=== PATIENT | male | born 2000 | race Two or more races ===

== ENCOUNTER 2019-02-11 21:30 | Emergency (ER) | payer OTHER ==
[~2019-02-11] VITALS: Ht 170.2 cm; Wt 106.6 kg
[2019-02-11] MEDS ORDERED: IV NORMAL SALINE 1000ML BAG 1,000 ML IV ONE (22:30)
[2019-02-11 22:40] LABS: BASO # 0.1 x10^3/uL (0.0-0.2); BASO % 1 % (0-3); EOS # 0.2 x10^3/uL (0.0-0.7); EOS % 3 % (0-3); HEMATOCRIT 44.4 % (39.0-53.0); HEMOGLOBIN 15.1 g/dL (13.0-17.5); LYMPH # 2.4 x10^3/uL (1.0-4.8); LYMPH % 29 % (24-48); MEAN CORPUSCULAR HEMOGLOBIN 30 pg (25-35); MEAN CORPUSCULAR HGB CONC 34 g/dL (31-37); MEAN CORPUSCULAR VOLUME 87 fL (79-100); MONO # 0.5 x10^3/uL (0.0-1.1); MONO % 6 % (0-9); NEUT % 62 % (31-73); PLATELET COUNT 402 x10^3/uL (140-400); RED CELL DISTRIBUTION WIDTH 13.1 % (11.5-14.5); WHITE BLOOD COUNT 8.2 x10^3/uL (4.0-11.0)
[2019-02-11] MEDS ORDERED: LIDO:MAALOX 1:1 20 ML SINGLE DOSE. SWSW ONE (22:45)
[2019-02-11 22:47] LABS: CALCIUM 9.2 mg/dL (8.5-10.1); GFR 95.3; POTASSIUM 3.9 mmol/L (3.5-5.1)
[2019-02-11 22:48] VITALS: BP 119/72
[2019-02-11 22:55] LABS: ALBUMIN 3.8 g/dL (3.4-5.0); ALBUMIN/GLOBULIN RATIO 0.8 (1.0-1.7); TOTAL BILIRUBIN 0.3 mg/dL (0.2-1.0); TOTAL PROTEIN 8.4 g/dL (6.4-8.2)
[2019-02-11 23:45] LABS: BILIRUBIN,URINE NEGATIVE (NEG); CLARITY,URINE CLOUDY; COLOR,URINE YELLOW; NITRITE,URINE NEGATIVE (NEG); PH,URINE 5.5; PROTEIN,URINE NEGATIVE (NEG-TRACE); UROBILINOGEN,URINE 0.2 mg/dL (0.2 mg/dL)
[2019-02-11 23:53] LABS: SQUAMOUS EPITHELIAL CELL,UR OCC /LPF
[2019-02-11 23:55] LABS: AMORPHOUS SEDIMENT,UR PRESENT /HPF; BACTERIA,URINE 0 /HPF (0-FEW); RBC,URINE 0 /HPF (0-2); WBC,URINE OCC /HPF (0-4)
[2019-02-12] MEDS ORDERED: FAMO20TA5 PO (00:01)
--- NOTE | 2019-02-12 00:01 | PHYS DOC ---
Past Medical History Past Medical History: Asthma Past Surgical History: No Surgical History Alcohol Use: None Drug Use: None Adult General Chief Complaint Chief Complaint: GI PROBLEM [facility] Patient is a 18 year old male who presents to the emergency department with complaints of epigastric pain and burning in his chest that worsened after eating today. Patient states he had to miss work because the pain became too severe. He denies any nausea, vomiting, diarrhea, abdominal pain, fever, cough, shortness of breath, wheezing, or palpitations. He states he has had some pain in his left low back today, denies any dysuria, hematuria, or increased urinary frequency. He currently rates his pain a 9 out of 10 on pain scale and describes the discomfort as burning. Patient denies any alleviating factors, the pain is worsened with eating. All other ROS is neg unless otherwise noted in HPI. Review of Systems Review of Systems See Above Current Medications Current Medications Current Medications Medications (Trade) Dose Ordered Sig/Anel Start Time Stop Time Status Last Admin Dose Admin Multi-Ingredient Mouthwash/Gargle (Gi Cocktail) 20 ml 1X ONCE 02/11/19 22:45 02/11/19 22:46 DC 02/11/19 22:40 20 ML Sodium Chloride 1,000 ml @ 1,000 mls/hr 1X ONCE 02/11/19 22:30 02/11/19 23:29 DC 02/11/19 22:42 1,000 MLS/HR Allergies Allergies Allergies Coded Allergies Type Severity Reaction Last Updated Verified No Known Drug Allergies 02/11/19 No Physical Exam Physical Exam See Above Constitutional: Well developed, well nourished, no acute distress, non-toxic appearance, obese. [] HENT: Normocephalic, atraumatic, bilateral external ears normal, nose normal. [] Eyes: PERRLA, EOMI, conjunctiva normal, no discharge. [] Neck: Normal range of motion, no stridor. [] Cardiovascular:Heart rate regular rhythm, no murmur [] Lungs & Thorax: Bilateral breath sounds clear to auscultation, respirations regular, no retractions [] Abdomen: Bowel sounds normal, soft, epigastric TTP, no guarding, no rebound tenderness, no masses, no pulsatile masses. [] Skin: Warm, dry, no erythema, no rash. [] Back: No tenderness, no CVA tenderness. [] Extremities: No cyanosis, ROM intact, no edema. [] Neurologic: Alert and oriented X 3, no focal deficits noted. [] Psychologic: Affect normal, judgement normal, mood normal. [] Current Patient Data Vital Signs Vital Signs Date Time Temp Pulse Resp B/P (MAP) Pulse Ox O2 Delivery O2 Flow Rate FiO2 02/11/19 22:48 90 119/72 (88) 98 Room Air 02/11/19 21:55 97.9 17 97.9 Lab Values Laboratory Tests Test 02/11/19 22:30 02/11/19 23:35 White Blood Count 8.2 x10^3/uL (4.0-11.0) Red Blood Count 5.10 x10^6/uL (4.30-5.70) Hemoglobin 15.1 g/dL (13.0-17.5) Hematocrit 44.4 % (39.0-53.0) Mean Corpuscular Volume 87 fL (79-100) Mean Corpuscular Hemoglobin 30 pg (25-35) Mean Corpuscular Hemoglobin Concent 34 g/dL (31-37) Red Cell Distribution Width 13.1 % (11.5-14.5) Platelet Count 402 x10^3/uL (140-400) H Neutrophils (%) (Auto) 62 % (31-73) Lymphocytes (%) (Auto) 29 % (24-48) Monocytes (%) (Auto) 6 % (0-9) Eosinophils (%) (Auto) 3 % (0-3) Basophils (%) (Auto) 1 % (0-3) Neutrophils # (Auto) 5.0 x10^3/uL (1.8-7.7) Lymphocytes # (Auto) 2.4 x10^3/uL (1.0-4.8) Monocytes # (Auto) 0.5 x10^3/uL (0.0-1.1) Eosinophils # (Auto) 0.2 x10^3/uL (0.0-0.7) Basophils # (Auto) 0.1 x10^3/uL (0.0-0.2) Sodium Level 141 mmol/L (136-145) Potassium Level 3.9 mmol/L (3.5-5.1) Chloride Level 104 mmol/L (98-107) Carbon Dioxide Level 29 mmol/L (21-32) Anion Gap 8 (6-14) Blood Urea Nitrogen 11 mg/dL (8-26) Creatinine 1.0 mg/dL (0.7-1.3) Estimated GFR (Cockcroft-Gault) 95.3 BUN/Creatinine Ratio 11 (6-20) Glucose Level 103 mg/dL (70-99) H Calcium Level 9.2 mg/dL (8.5-10.1) Total Bilirubin 0.3 mg/dL (0.2-1.0) Aspartate Amino Transferase (AST) 24 U/L (15-37) Alanine Aminotransferase (ALT) 32 U/L (16-63) Alkaline Phosphatase 103 U/L (46-116) Total Protein 8.4 g/dL (6.4-8.2) H Albumin 3.8 g/dL (3.4-5.0) Albumin/Globulin Ratio 0.8 (1.0-1.7) L Lipase 126 U/L (73-393) Urine Collection Type Unknown Urine Color Yellow Urine Clarity Cloudy Urine pH 5.5 Urine Specific [place] 1.020 Urine Protein Negative mg/dL (NEG-TRACE) Urine Glucose (UA) Negative mg/dL (NEG) Urine Ketones (Stick) Negative mg/dL (NEG) Urine Blood Negative (NEG) Urine Nitrite Negative (NEG) Urine Bilirubin Negative (NEG) Urine Urobilinogen Dipstick 0.2 mg/dL (0.2 mg/dL) Urine Leukocyte Esterase Negative (NEG) Urine RBC 0 /HPF (0-2) Urine WBC Occ /HPF (0-4) Urine Squamous Epithelial Cells Occ /LPF Urine Amorphous Sediment Present /HPF Urine Bacteria 0 /HPF (0-FEW) Urine Mucus Mod /LPF Laboratory Tests 02/11/19 22:30 Laboratory Tests 02/11/19 22:30 EKG EKG 2158- SR, rate 79, no STEMI read by Dr. Gómez [] Radiology/Procedures Radiology/Procedures [] Course & Med Decision Making Course & Med Decision Making Pertinent Labs and Imaging studies reviewed. (See chart for details) Patient is a 18-year-old male who presents to emergency room with complaints of epigastric pain and burning in his chest began today. His CBC was unremarkable, CMP revealed a glucose of 103, total protein of 8.4 was otherwise unremarkable, UA was also unremarkable. EKG was sinus rhythm with a rate of 75, no STEMI as read by Dr. Gómez His vital signs were stable throughout the duration of the stay. Patient was given a GI cocktail and 1 L of normal saline. He reported relief of his pain after these medications. A prescription was written for famotidine 20 mg by mouth at at bedtime. Patient was instructed to follow the diet instructions for GERD that were provided to him and he was instructed to follow-up with his primary care doctor this week. Patient verbalized an understanding of home care, medications, follow-up, and return to ED instructions and was in agreement with the plan of care. [] Dragon Disclaimer Dragon Disclaimer This electronic medical record was generated, in whole or in part, using a voice recognition dictation system. Departure Departure Impression: Primary Impression: GERD (gastroesophageal reflux disease) Disposition: HOME, SELF-CARE Condition: STABLE Referrals: NO PCP (PCP) Patient Instructions: Diet for Gastroesophageal Reflux Disease, Adult, Gastroesophageal Reflux Disease, Adult, [id number] Additional Instructions: Fill the prescription and use as directed. Follow the diet instructions p rovided. Follow up with your primary care doctor this week. Return to the ER if your symptoms worsen. Scripts Famotidine (FAMOTIDINE) 20 Mg Tablet 20 MG PO HS for 30 Days, #30 TAB 0 Refills Prov: BRET PAYTON APRN 02/12/19 Problem Qualifiers Primary Impression: GERD (gastroesophageal reflux disease) Esophagitis presence: esophagitis presence not specified Qualified Codes: K21.9 - Gastro-esophageal reflux disease without esophagitis BRET PAYTON APRN Feb 12, 2019 00:01
--- NOTE | 2019-02-12 03:14 | EKG ---
[facility] [address] [place] [address] Test Date: 2019-02-11 Test Time: 21:58:17 Pat Name: JOSEFINA ZHENG Department: Room: Gender: M [employer] Job Titles: : 2000 Requested By: SENAIT CONTI Order Number: [id number] Reading MD: Measurements Intervals Raymond Rate: 79 P: 33 NE: 144 QRS: 34 QRSD: 80 T: 15 QT: 348 QTc: 400 Interpretive Statements SINUS RHYTHM QRS(T) CONTOUR ABNORMALITY CONSIDER ANTEROSEPTAL MYOCARDIAL DAMAGE POSSIBLY ABNORMAL ECG RI6.01 No previous ECG available for comparison
== END 2019-02-12 00:15 | disposition home or self-care (01) ==
LOC: ER 21:30
DX: K21.9 Gastro-esophageal reflux disease without esophagitis (principal); J45.909 Unspecified asthma, uncomplicated
CPT/HCPCS: 36415; 80053; 81001; 83690; 85025; 93005; 99285; J7030

== ENCOUNTER 2019-03-12 20:34 | Emergency (ER) | payer OTHER ==
[~2019-03-12] VITALS: Ht 167.6 cm; Wt 106.6 kg
[~2019-03-12 20:34] MED LIST: FAMO20TA5 PO
[2019-03-12] MEDS ORDERED: IBUPROFEN 200 MG TABLET. PO ONE (20:45)
[2019-03-12 21:10] LABS: INFLUENZA A PATIENT NEGATIVE (NEGATIVE)
[2019-03-12 21:12] LABS: INFLUENZA B PATIENT POSITIVE (NEGATIVE)
[2019-03-12 21:16] VITALS: BP 127/62
[2019-03-12] MEDS ORDERED: AMOX875T PO (22:13)
[2019-03-12] MEDS ORDERED: PRED50TA PO (22:13)
[2019-03-12] MEDS ORDERED: OSEL75CA PO (22:13)
--- NOTE | 2019-03-12 22:13 | PHYS DOC ---
Past Medical History Past Medical History: Asthma (MILLY MORRIS APRN) Past Surgical History: No Surgical History (MILLY MORRIS APRN) Alcohol Use: None Drug Use: None (MILLY MORRIS APRN) Attending Signature I have participated in the care of this patient and I have reviewed and agree with all pertinent clinical information above including history, exam, and recommendations. (JEROD AN MD) Adult General Chief Complaint Chief Complaint: COUGH HPI HPI Patient is a 18 year old female who presents with cough, sore throat, and fever for two days. Reports bloody sputum on coughing today. (MILLY MORRIS APRN) Review of Systems Review of Systems Constitutional: Reports fever Eyes: Denies change in visual acuity, redness, or eye pain [] HENT: Reports sore throat. Denies nasal congestion Respiratory: Reports cough denies shortness of breath [] Cardiovascular: No additional information not addressed in HPI [] GI: Denies abdominal pain, nausea, vomiting, bloody stools or diarrhea [] : Denies dysuria or hematuria [] Musculoskeletal: Denies back pain or joint pain [] Integument: Denies rash or skin lesions [] Neurologic: Denies headache, focal weakness or sensory changes [] All other systems were reviewed and found to be within normal limits, except as documented in this note. (MILLY MORRIS APRN) Current Medications Current Medications Current Medications Medications (Trade) Dose Ordered Sig/Anel Start Time Stop Time Status Last Admin Dose Admin Ibuprofen (Motrin) 600 mg 1X ONCE 03/12/19 20:45 03/12/19 20:48 DC 03/12/19 20:45 600 MG (JEROD AN MD) Allergies Allergies Allergies Coded Allergies Type Severity Reaction Last Updated Verified No Known Drug Allergies 02/11/19 No (JEROD AN MD) Physical Exam Physical Exam Constitutional: Well developed, well nourished, no acute distress, non-toxic appearance. [] HENT: Normocephalic, atraumatic, bilateral external ears normal, oropharynx moist, no oral exudates, nose normal. [] +2 tonsils with mild erythema and exudate +2 anterior cervical adenopathy Midline uvula Eyes: PERRLA, EOMI, conjunctiva normal, no discharge. [] Neck: Normal range of motion, no tenderness, supple, no stridor. [] Cardiovascular:Heart rate regular rhythm, no murmur [] Lungs & Thorax: Bilateral breath sounds clear to auscultation [] Abdomen: Bowel sounds normal, soft, no tenderness, no masses, no pulsatile masses. [] Skin: Warm, dry, no erythema, no rash. [] Back: No tenderness, no CVA tenderness. [] Extremities: No tenderness, no cyanosis, no clubbing, ROM intact, no edema. [] Neurologic: Alert and oriented X 3, normal motor function, normal sensory function, no focal deficits noted. [] Psychologic: Affect normal, judgement normal, mood normal. [] (MILLY MORRIS APRN) Current Patient Data Vital Signs Vital Signs Date Time Temp Pulse Resp B/P (MAP) Pulse Ox O2 Delivery O2 Flow Rate FiO2 03/12/19 21:16 109 17 127/62 (83) 95 Room Air 03/12/19 20:34 99.6 99.6 (JEROD AN MD) Lab Values Laboratory Tests Test 03/12/19 20:43 03/12/19 20:51 Influenza Type A Antigen Negative (NEGATIVE) Influenza Type B Antigen Positive (NEGATIVE) Group A Streptococcus Rapid Positive (NEGATIVE) (JEROD AN MD) EKG EKG [] (MILLY MORRIS APRN) Radiology/Procedures Radiology/Procedures [] (MILLY MORRIS APRN) Course & Med Decision Making Course & Med Decision Making Pertinent Labs and Imaging studies reviewed. (See chart for details) This is a 18 year old male with cough, sore throat and fever for two days. Chest xray is negative Positive Influenza B-D/c on Tamiflu Positive strep-D/c with Amoxicillin Provided return precautions. D/C to home (MILLY MORRIS APRN) Dragon Disclaimer Dragon Disclaimer This electronic medical record was generated, in whole or in part, using a voice recognition dictation system. (MILLY MORRIS APRN) Departure Departure Impression: Primary Impression: Fever Additional Impressions: Influenza B Strep pharyngitis Cough Disposition: HOME, SELF-CARE Condition: STABLE Referrals: NO PCP (PCP) follow up with your doctor in 1-2 week Patient Instructions: Fever, Adult, [id number], Influenza, Adult, Strep Throat Additional Instructions: You have influenza and Strep. Please take the prescribed medicines as ordered. Take Tylenol/Motrin for fever or pain. Use salt water gurgles as needed for throat pain. Follow up with your doctor in 1-2 weeks. Scripts Prednisone (PREDNISONE) 50 Mg Tablet 1 TAB PO DAILY, #5 TAB Prov: MILLY MORRIS APRN 03/12/19 Amoxicillin (AMOXICILLIN) 875 Mg Tablet 1 TAB PO BID, #20 TAB Prov: MILLY MORRIS APRN 03/12/19 Oseltamivir Phosphate (TAMIFLU) 75 Mg Capsule 1 CAP PO BID, #10 CAP Prov: MILLY MORRIS APRN 03/12/19 Problem Qualifiers Primary Impression: Fever Fever type: unspecified Qualified Codes: R50.9 - Fever, unspecified MILLY MORRIS APRN Mar 12, 2019 22:13 JEROD AN MD Mar 13, 2019 19:21
--- NOTE | 2019-03-13 07:52 | RAD ---
CHEST PA LATERAL History: Cough.. No comparison Cardiomediastinal silhouette is not enlarged. No evidence of pneumothorax. No consolidating infiltrate. No evidence of large effusion. Bones appear grossly intact. IMPRESSION: No evidence of consolidating infiltrate. Outpatient CT chest could be obtained for further evaluation, depending on clinical concerns. Electronically signed by: Shahram Flanagan MD (03/13/2019 7:49 AM) [facility]
== END 2019-03-12 22:28 | disposition home or self-care (01) ==
LOC: ER 20:34
DX: J10.1 Influenza due to other identified influenza virus with other respiratory manifestations (principal); J45.909 Unspecified asthma, uncomplicated
CPT/HCPCS: 71046; 87804; 87880; 99285-25